=== PATIENT | male | born 1990 | race Two or more races ===

== ENCOUNTER 2024-09-20 12:39 | Emergency (ER) | payer OTHER ==
[2024-09-20] MEDS ORDERED: Ketorolac Tromethamine 30 MG (1 mL) VIAL ONE (13:00)
== END 2024-09-20 13:36 | disposition home or self-care (01) ==
LOC: CSHERS 12:39
DX: M25.512 Pain in left shoulder (principal); V89.2XXA Person injured in unspecified motor-vehicle accident, traffic, initial encounter
CPT/HCPCS: 96372; 99284; J1885